=== PATIENT | male | born 1985 | race Caucasian/White ===

== ENCOUNTER → 2016-10-13 | Outpatient (CLI) | payer BC ==
[~2016-10-13] MED LIST: KEFL500C7 PO; NORCOTAB PO
--- NOTE | 2016-10-13 12:21 | REP ---
LEFT SHOULDER, THREE VIEWS: There is no evidence of an acute fracture, dislocation or intrinsic bone disease. IMPRESSION: No fracture or dislocation. Signed by Albin Leung MD 10/13/2016 05:12 P
== END ==
LOC: M RAD 10:50
PROVIDERS: ATTEND Physician Assistant Medical
DX: M25.512 Pain in left shoulder (principal)

== ENCOUNTER 2016-10-18 20:06 | Emergency (ER) | payer BC ==
[~2016-10-18] VITALS: Ht 177.8 cm; Wt 75.0 kg
[2016-10-18] MEDS ORDERED: cefTRIAXone SOD 1 GM VIAL (J0696) IM ONE (20:30)
[2016-10-18] MEDS ORDERED: ADACEL/BOOSTRIX VACCINE (DIPHTH/PERTUSS/ACELL/TETANUS)0.5ML SYR (90715) IM ONE (20:30)
[2016-10-18] MEDS ORDERED: ANEXSIA, NORCO 7.5MG/325MG TABLET(HYDROCODONE/APAP) PO ONE ×2 (21:00→22:00)
[2016-10-18] MEDS ORDERED: LIDOCAINE 2% MDV 20 ML VIAL SC ONE (21:00)
[2016-10-18] MEDS ORDERED: NORCO, ANEXSIA 5/325MG TABLET (HYDROcodone/ACETAMINOPHEN) PO ONE (21:15)
[2016-10-18] MEDS ORDERED: NORCOTAB PO (22:19)
[2016-10-18] MEDS ORDERED: KEFL500C17 PO (22:19)
[2016-10-18 22:22] VITALS: BP 141/78
--- NOTE | 2016-10-19 09:24 | REP ---
Left hand series: Four views. History: Foreign body. Laceration. Findings: Four views of the left hand demonstrate soft tissue gas along the ulnar aspect of the base of the proximal phalanx of the ring finger just distal to the MCP joint. There are multiple flecks of tiny opaque debris in and adjacent to this gas density and irregular soft tissue representing the laceration site. No definite fracture is seen. There are also small metallic densities in or on the skin or subcutaneous tissues of the middle phalanges of the index and long fingers. Impression: No fracture seen. Laceration site at the proximal phalanx of the ring finger. Multiple tiny foci of opaque debris in the soft tissues as above. Signed by Gustavo White MD 10/19/2016 11:31 A
== END 2016-10-18 22:28 | disposition home or self-care (01) ==
LOC: EDBD 20:06 → M ED 20:53
DX: S61.215A Laceration without foreign body of left ring finger without damage to nail, initial encounter (principal); S61.122A Laceration with foreign body of left thumb with damage to nail, initial encounter; S66.002A Unspecified injury of long flexor muscle, fascia and tendon of left thumb at wrist and hand level, initial encounter; S56.512A Strain of other extensor muscle, fascia and tendon at forearm level, left arm, initial encounter; V86.59XA Driver of other special all-terrain or other off-road motor vehicle injured in nontraffic accident, initial encounter; Y92.410 Unspecified street and highway as the place of occurrence of the external cause; Y93.89 Activity, other specified; Y99.8 Other external cause status; F17.200 Nicotine dependence, unspecified, uncomplicated
CPT/HCPCS: 12002; 73130; 90715; 96372; 99283; J0696

== ENCOUNTER 2016-12-02 08:07 | Emergency (ER) | payer BC ==
[~2016-12-02] VITALS: Ht 177.8 cm; Wt 85.0 kg
[~2016-12-02 08:07] MED LIST changes: +KEFL500C17 PO; -KEFL500C7 PO
[2016-12-02] MEDS ORDERED: cloNIDine HCL 0.3 MG/24 HR PATCH TOP STA (08:38)
[2016-12-02] MEDS ORDERED: CLON3PA TD (08:40)
[2016-12-02] MEDS ORDERED: PROM12.55 PO (08:41)
[2016-12-02] MEDS ORDERED: KETO10TAB PO (08:43)
[2016-12-02] MEDS ORDERED: KETOROLAC 60 MG/2 ML VIAL (J1885) IM ONE (08:45)
[2016-12-02] MEDS ORDERED: PROMETHAZINE INJ 25 MG/ML VIAL (J2550) IM ONE (08:45)
[2016-12-02 10:49] VITALS: BP 134/70
== END 2016-12-02 10:50 | disposition home or self-care (01) ==
LOC: M ED 08:47
DX: F11.23 Opioid dependence with withdrawal (principal)
CPT/HCPCS: 96372; 99282; J1885

== ENCOUNTER 2018-04-05 10:54 | Emergency (ER) | payer BC | END 2018-04-05 13:53 | disposition home or self-care (01) | LOC: M ED 10:54 | DX: S29.011A Strain of muscle and tendon of front wall of thorax, initial encounter (principal); X50.0XXA Overexertion from strenuous movement or load, initial encounter; Y92.89 Other specified places as the place of occurrence of the external cause; F17.210 Nicotine dependence, cigarettes, uncomplicated; F11.11 Opioid abuse, in remission | CPT/HCPCS: 71046 ==

== ENCOUNTER 2018-04-29 14:07 | Emergency (ER) | payer OTHER, BC ==
[~2018-04-29] VITALS: Ht 177.8 cm; Wt 75.0 kg
[2018-04-29 14:07] VITALS: BP 138/84
[~2018-04-29 14:07] MED LIST changes: +BUPR1SUB5 SL; +CLON0.3D8 TD; +CYCL10TA PO; +KETO10TAB PO; +NAPR-49 PO; +PROM12.56 PO
[2018-04-29] MEDS ORDERED: NAPROXEN 250 MG TAB PO ONE (15:00)
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
[2018-04-29] MEDS ORDERED: NAPR-49 PO (16:26)
== END 2018-04-29 16:35 | disposition home or self-care (01) ==
LOC: M ED 14:07
DX: S33.5XXA Sprain of ligaments of lumbar spine, initial encounter (principal); V43.52XA Car driver injured in collision with other type car in traffic accident, initial encounter; Y92.410 Unspecified street and highway as the place of occurrence of the external cause; F11.20 Opioid dependence, uncomplicated; Z79.899 Other long term (current) drug therapy; Z79.1 Long term (current) use of non-steroidal anti-inflammatories (NSAID)